=== PATIENT | male | born 1970 | race Caucasian/White ===

== ENCOUNTER → 2017-05-08 | Day surgery (SDC) | payer BC ==
[2017-04-25 15:03] VITALS: Ht 180.3 cm; Wt 125.0 kg
[~2017-05-08] VITALS: Ht 180.3 cm; Wt 125.0 kg
[~2017-05-08] MED LIST: ATROPINE SULFATE 0.1 MG/ML 5ML SYR IV PRN; CEFAZOLIN 3000MG IV PUSH 22.5 ML IV SCH; DEXAMETHASONE SOD INJ 4 MG/ML VIAL ONE; EpHEDrine SULFATE INJ 50 MG/ML AMP IV PRN; FENTANYL CITRATE INJ 50 MCG/1 ML 2 ML VIAL ONE; HYDROCORTISONE SOD SUCCINATE 100 MG/2 ML VIAL ONE; HYDROmorphone INJ 1 MG/ML SYR IV PRN; LACTATED RINGER'S 1000ML 1,000 ML IV SCH; LIDOCAINE HCL 2% 2 ML VIAL (20MG/ML) ONE; LIDOCAINE/EPINEPHRINE 1% INJ 50 ML VIAL ONE; MIDAZOLAM HCL 1 MG/ML 2ML VIAL ONE; ONDANSETRON INJ 2 MG/ML 2 ML VIAL IV PRN; ONDANSETRON INJ 2 MG/ML 2 ML VIAL ONE; OXYCODONE/ACETAMINOPHEN 5-325 TAB PO PRN; PRED-301 PO; PROMETHAZINE HCL INJ 12.5 MG in SODIUM CHLORIDE 0.9% 50ML 50 ML IV PRN; PROPOFOL IV EMULSION 10 MG/ML 20 ML VIAL IV ONE; SODIUM CHLORIDE 0.9% 1000ML 1,000 ML IV SCH; SUCCINYLCHOLINE CHLORIDE 20 MG/ML 10 ML VIAL IV ONE
--- NOTE | 2017-05-08 12:04 | History & Physical Bridge Note ---
H&P Re-Evaluation Bridge Note: I have examined the patient, reviewed the History & Physical and in the interval since the performance of the History & Physical I have noted the following changes of clinical significance: No changes noted
--- NOTE | 2017-05-08 13:18 | [facility] Post Operative Brief Note ---
Immediate Operative Summary Operative Date May 08, 2017. Pre-Operative Diagnosis Right knee medial meniscus tear Post-Operative Diagnosis Same as preop, chondrosis Procedure(s) Performed Right Knee Arthroscopy, Partial Medial Meniscectomy, Chondroplasty Surgeon Dr. Orozco Cosmetic Consultant Surgeon(s) Sammy Rosales PA-C, rosemary ser, ms3 Estimated Blood Loss 5 mL Findings Consistent with Post-Op Diagnosis Specimens None Drains None Anesthesia Type General Complication(s) none Disposition Accompanied Pt To Recovery: no Disposition: Recovery Room / PACU
--- NOTE | 2017-05-08 13:32 | [facility] Operative Report ---
Operative Report Operative Date May 08, 2017. Pre-Operative Diagnosis Right knee medial meniscus tear Post-Operative Diagnosis Same as preop, medial femoral condyle chondrosis Procedure(s) Performed Right Knee Arthroscopy, Partial Medial Meniscectomy, Chondroplasty medial femoral condyle Surgeon Dr. Orozco Communication Coordinator Surgeon(s) Sammy Rosales PA-C, rosemary ser, ms3 Estimated Blood Loss 5 mL Findings As above Specimens None Anesthesia laryngeal mask Complication(s) None Disposition Recovery Room / PACU Indications The patient's 46-year-old male with medial right knee pain consistent with a torn meniscus confirmed by MRI. Description of Procedure Informed consent obtained. Preoperative timeout done. Patient identified right knee as operative site. I marked with my initials. Preoperative antibiotics given. Positioned supine on the OR table. No tourniquet. Lateral post for stressing the knee. The knee is injected with 1% lidocaine with epinephrine. DVT prophylaxis with foot pumps. Exam under anesthesia showed no effusion intact ligaments and range of motion 0-130. Prepped and draped in usual sterile fashion. Inferolateral viewing portal superior lateral outflow portal and inferomedial working portal. Diagnostic arthroscopy performed. Patella trochlea suprapatellar pouch medial and lateral gutters normal. Retropatellar fat pad debrided with shaver. Cruciate ligaments posterior medial and lateral compartments lateral condyle meniscus and popliteus normal. Grade 1 softening lateral tibial plateau. Unstable flap of cartilage weightbearing area medial femoral condyle. Debrided with shaver 57 mm. Grade 3. Unstable complex of posterior body meniscus tear. Roots intact. Meniscus debrided to stable rim with basket forceps and motorized shaver. Debris cleared out of knee. Portals closed with 4-0 nylon. Soft sterile dressing applied. Patient awakened from anesthesia and taken to recovery room in stable condition. No specimens or complications. Counts correct. Blood loss minimal. There was no unavailable to speak to at the end of the operation. He can be rehabilitated according to arthroscopic partial medial meniscectomy protocol. Weight-bear as tolerated. Aspirin 325 twice a day for DVT prophylaxis starting in the morning. He also received a stress dose of steroids as he is on 5 mg of prednisone daily for sarcoidosis. He will receive an additional 25 mg of by mouth prednisone tomorrow. I attest to the content of the Intraoperative Record and any orders documented therein. Any exceptions are noted below.
--- NOTE | 2017-05-08 13:35 | [facility] Operative Report ---
Operative Report Operative Date May 08, 2017. Pre-Operative Diagnosis Right knee medial meniscus tear Post-Operative Diagnosis Same as preop, medial femoral condyle chondrosis Procedure(s) Performed Right Knee Arthroscopy, Partial Medial Meniscectomy, Chondroplasty medial femoral condyle Surgeon Dr. Orozco Public Works Laborer Surgeon(s) Sammy Rosales PA-C, rosemary ser, ms3 Estimated Blood Loss 5 mL Specimens None Drains None Anesthesia Type General Complication(s) none Disposition no Recovery Room / PACU I attest to the content of the Intraoperative Record and any orders documented therein. Any exceptions are noted below.
--- NOTE | 2017-05-08 13:37 | Medical Student: [facility] ---
Immediate Operative Summary Operative Date May 08, 2017. Pre-Operative Diagnosis Right knee medial meniscal tear Post-Operative Diagnosis Right knee medial meniscal tear and medial femoral condyle chondrosis Procedure(s) Performed Arthroscopy of the right knee, partial medial meniscectomy, and chondroplasty Surgeon Dr. Orozco Last Ironer Surgeon(s) RADHA Rosales PA-C, and Chanell Ser, MS3 Estimated Blood Loss 5cc Findings Consistent with post-operative diagnosis Specimens No specimens were obtained Drains None Anesthesia General Complication(s) None Disposition Recovery Room / PACU
--- NOTE | 2017-05-08 13:42 | Discharge Instructions ---
Discharge Instructions Date of Service May 08, 2017. Admission Reason for Admission: Right Knee Medial Meniscus Tear Discharge Discharge Diagnosis / Problem: Right knee medial meniscus tear Discharge Goals Goal(s): Decrease discomfort, Improve function, Increase independence Activity Recommendations Activity Limitations: as noted below Lifting Limitations: none Exercise/Sports Limitations: until after follow-up appointment May Resume Sexual Activity: when tolerated Shower/Bathe: tomorrow, keep incision dry Driving or Machine Use: Not until cleared by bibliographic services specialist Weightbearing Status: Right weightbearing (as tolerated with aide of crutches) . Instructions / Follow-Up Instructions / Follow-Up The following are instructions to follow after your Arthroscopic Knee Surgery. ACTIVITY RECOMMENDATIONS: * Minimize activity until your first visit after surgery. * No excessive walking, jogging, sports or laboring. * Return to activity is individualized. Most patients are able to return to every day activities within one month. * Return to sports or intensive labor usually occurs at 2-3 months. * Driving is not permitted until at least your first postoperative visit at a minimum. Please ask your doctor when it is safe to resume driving. If you have an automatic vehicle and your left leg has been operated on, then you may begin driving as soon as you are comfortable and can drive safely. SCHOOL/WORK RECOMMENDATIONS: * You may return to sedentary work or school when you are feeling more comfortable. This is usually 3-7 days after surgery. * Expect increased discomfort with increased activity. Continue to elevate and ice the leg as much as possible. MEDICATIONS: * You will have a prescription for pain medication and an anti-inflammatory medication after surgery. * Use the pain medication for severe pain and the anti-inflammatory for less severe pain. Once the pain medication has run out, try to use the anti-inflammatory medication. If this is not effective, contact the office for assistance. * The pain medication may cause nausea, constipation and drowsiness. You should see how they affect you before driving or similar activity. * The anti-inflammatory medication may cause stomach upset and bleeding. If this occurs let your doctor know immediately . * Take a stool softener like Colace or a laxative like Senokot to prevent constipation. DIET: * Resume previous diet. SPECIAL CARE: ICE: You have the option of an ice cooler, gel packs or ice bags. * If you have an ice cooler, refer to the instructions for that device. The ice cooler may be used continuously. * If you do not have an ice cooler, you will need to use ice bags or gel packs. Do not apply ice directly to the skin. Use a thin dressing or ese shirt between the skin and ice bag. Apply ice for 20-30 minutes and repeat every 2-4 hours. This is especially important for the first 7-10 days after surgery. Once the pain improves, use ice as needed. ELEVATION: * Keep your leg elevated at or above the level of your heart as much as possible. * Expect some increased discomfort and swelling if you are standing for any length of time. * When lying down, avoid placing anything under your knee. Rather, prop your leg up by placing several pillows under your heel or calf. DRESSING: * Your dressing will be changed at your first therapy appointment approximately 4-5 days after surgery. Band-aids, tape strips or gauze may be applied. You may then change your dressing daily. * Reapply dressing followed by the William wrap or Tubi-labor arbitrator hearing office stockinet and EBIce cooling pad (if chosen). * Always wash your hands prior to touching the incision area. * Once the stitches are removed, you may leave the wound open to air or cover with an William wrap or Tubi-labor arbitrator hearing office stockinet. * If you have been given a white elastic stocking (JANICE hose), wear as much as possible for the first 1-3 weeks depending on swelling. * Expect some bloody drainage for the first few days after surgery. * Leave the tape strips, if present, in place for 5-7 days. * Band-aids and gauze may be changed daily. CRUTCHES: * You will need to use crutches after surgery. * You may gradually progress to full weight bearing as tolerated and wean off the crutches unless otherwise advised. * Your therapist can provide assistance weaning off crutches. * Patients who have a microfracture done may need to be toe-touch weight- bearing for 4-6 weeks. BATHING: * You may shower or sponge-bathe immediately after surgery. * The dressing will need to be covered with a plastic bag or plastic wrap until the dressing is changed on the fourth or fifth day after surgery. * Once the dressing has been changed on the fourth or fifth day after surgery, you may shower and get the incision wet. * Wash with regular soap and water. * Do not bathe (submerge the incision), soak, swim or use a hot tub until the incision is completely healed over with normal skin and the doctor has given the OK to proceed. * There is no need to apply any ointments, powders or salves to your incision. * Do not apply alcohol or hydrogen peroxide directly to the incision. * Diluted peroxide (50:50 mixture with sterile saline) may be used to clean dried blood from around the incision area. BRACE: * Bracing is generally not needed after routine Arthroscopic Knee surgery. THERAPY: * You will begin therapy four or five days after surgery. * Organized therapy with the therapist is important for the first 4-6 weeks after surgery. During that time you will attend therapy 1-3 times per week. * You will also need to do daily exercises for range of motion and strength as instructed. PROBLEMS/QUESTIONS: * If you have any problems such as severe pain, numbness, tingling or high fevers or if you have any questions, please contact the office at [phone]. * It is not uncommon to have some numbness and tingling after the surgery especially if you have had a nerve block done. This should gradually improve over the first 1- 2 days. If this persists longer or worsens please contact the office. FOLLOW UP VISIT: * If not already scheduled, please call the office at to schedule a follow-up appointment for 10 days, 6 weeks and 3 months after surgery. Current Hospital Diet Patient's current hospital diet: Discharge Diet Recommended Diet: Regular Diet Procedures Procedures Performed: Right Knee Arthroscopy, Partial Medial Meniscectomy, Chondroplasty medial femoral condyle Pending Studies Studies pending at discharge: no Medical Emergencies . Who to Call and When: Medical Emergencies: If at any time you feel your situation is an emergency, please call 911 immediately. . Non-Emergent Contact Non-Emergency issues call your: Primary Care Provider Call Non-Emergent contact if: you have a fever, temperature is above 101.5, your pain is not controlled, your pain is worsening, wound has increased drainage, you have any medication questions . "Provider Documentation" section prepared by Sammy Rosales. . VTE Core Measure Inpt VTE Proph given/why not?: Other Anticoagulation (Aspirin 325 mg BID ( start tomorrow AM)), [facility] Drug Monitoring Program Search Results: patient reviewed within database, no issues identified, see additional documentation
[2017-05-08] MEDS: FENTANYL CITRATE INJ 50 MCG/1 ML 2 ML VIAL IV PRN ×4 (13:53→14:16)
[2017-05-08 14:32] VITALS: TEMP 36.5
--- NOTE | 2017-05-08 14:37 | Anesthesia Progress Nt - [facility] ---
Anesthesia Post Op Note Date & Time May 08, 2017 at 14:36 Vital Signs Pain Intensity: 5 Vital Signs Past 12 Hours Date Time Temp Pulse Resp B/P (MAP) Pulse Ox O2 Delivery O2 Flow Rate FiO2 05/08/17 14:22 55 9 05/08/17 14:22 55 9 84 05/08/17 14:20 118/82 05/08/17 14:17 70 8 89 05/08/17 14:17 70 8 05/08/17 14:15 133/90 05/08/17 14:12 86 16 95 05/08/17 14:12 86 16 05/08/17 14:11 65 12 96 05/08/17 14:11 66 12 05/08/17 14:10 121/94 05/08/17 14:10 36.5 95 Room Air 05/08/17 14:06 66 9 92 05/08/17 14:06 65 9 05/08/17 14:05 133/90 05/08/17 14:01 64 11 05/08/17 14:01 67 11 99 05/08/17 14:00 142/89 05/08/17 13:56 66 12 98 05/08/17 13:56 65 12 05/08/17 13:55 135/97 05/08/17 13:51 63 16 98 05/08/17 13:51 65 16 05/08/17 13:50 138/86 05/08/17 13:46 74 9 05/08/17 13:46 75 9 98 05/08/17 13:45 132/83 05/08/17 13:44 74 11 97 05/08/17 13:44 75 11 05/08/17 13:40 133/81 05/08/17 13:39 88 17 93 05/08/17 13:39 88 17 05/08/17 13:35 128/81 05/08/17 13:34 141/63 05/08/17 13:34 37.0 80 16 141/63 96 Mask 7 05/08/17 10:56 36.9 64 16 124/85 (98) 96 Room Air Notes Mental Status: alert / awake / arousable, participated in evaluation Pt Amnestic to Procedure: Yes Nausea / Vomiting: adequately controlled Pain: adequately controlled Airway Patency, RR, SpO2: stable & adequate BP & HR: stable & adequate Hydration State: stable & adequate Anesthetic Complications: no major complications apparent
[2017-05-08 15:30] VITALS: BP 119/82; PULSE 63; O2SAT 95
== END | disposition home or self-care (01) ==
LOC: X.SURG 10:35
PROVIDERS: ATTEND Physical Medicine & Rehabilitation Sports Medicine
DX: S83.231A Complex tear of medial meniscus, current injury, right knee, initial encounter (principal); W01.0XXA Fall on same level from slipping, tripping and stumbling without subsequent striking against object, initial encounter; Y93.H9 Activity, other involving exterior property and land maintenance, building and construction; K21.9 Gastro-esophageal reflux disease without esophagitis; G47.33 Obstructive sleep apnea (adult) (pediatric); Z98.890 Other specified postprocedural states; Z90.89 Acquired absence of other organs; Z98.818 Other dental procedure status; Z80.0 Family history of malignant neoplasm of digestive organs; Z82.0 Family history of epilepsy and other diseases of the nervous system